=== PATIENT | female | born 1945 | race Caucasian/White ===

== ENCOUNTER 2017-02-01 17:35 | Emergency (ER) | payer OTHER, MEDICARE ==
[2017-02-01 17:43] VITALS: PULSE 80; TEMP 98.3; BMI 21.6
--- NOTE | 2017-02-01 18:07 | PDOC ---
History of Present Illness - History of Present Illness Initial Comments: 02/01/17 18:24 The patient is a 71 year old female, with a significant past medical history of Goiter, insomnia, osteoarthritis, who presents to the emergency department with right heel pain since this morning. Patient stated that her pain began this morning after her normal daily walk. She describes her right heel as swollen, hot, and tender to the touch. She states she is currently unable to ambulate without limping. Ambulating and palpation makes her rt heel pain worse. She says that nothing makes it better. Did not take any medication. FMHx diabetes, HTN, hypercholesterolemia. She denies recent fevers, chills, headache or dizziness. She denies recent nausea, vomit, diarrhea or constipation. She denies recent dysuria, frequency, urgency or hematuria. She denies recent chest pain or shortness of breath. Primary Care Physician: Alexis Kyle <Bernarda Carrillo - Last Filed: 02/01/17 18:24> <Ellen Contreras - Last Filed: 02/01/17 18:32> - General Chief Complaint: Redness To Affected Area Stated Complaint: RIGHT HEEL REDNESS Time Seen by Provider: 02/01/17 17:45 Past History <Bernarda Carrillo - Last Filed: 02/01/17 18:24> - Past Medical History Cancer: Yes Thyroid Disease: Yes (GOITER) - Immunization History Immunization Up to Date: (5 YRS) - Suicide/Smoking/Psychosocial Hx Smoking History: Never smoked Hx Alcohol Use: Yes Drug/Substance Use Hx: No Substance Use Type: Alcohol <Ellen Contreras - Last Filed: 02/01/17 18:32> - Past Medical History Allergies/Adverse Reactions: Allergies Allergy/AdvReac Type Severity Reaction Status Date / Time No Known Allergies Allergy Verified 02/01/17 17:37 Home Medications: Ambulatory Orders Levothyroxine [Synthroid -] 100 mcg PO DAILY 05/21/15 Trazodone HCl 200 mg PO DAILY 05/21/15 Zolpidem Tartrate [Ambien] 5 mg PO HS 05/21/15 Cephalexin Monohydrate [Keflex -] 500 mg PO Q6H #28 capsule 02/01/17 Sulfamethoxazole/Trimethoprim [Bactrim Ds -] 1 tab PO BID #14 tablet 02/01/17 Review of Systems - Review of Systems Comments:: 02/01/17 18:25 GENERAL/CONSTITUTIONAL: No fever or chills. No weakness. HEAD, EYES, EARS, NOSE AND THROAT: No change in vision. No ear pain or discharge. No sore throat. GASTROINTESTINAL: No nausea, vomiting, diarrhea or constipation. GENITOURINARY: No dysuria, frequency, or change in urination. CARDIOVASCULAR: No chest pain or shortness of breath. RESPIRATORY: No cough, wheezing, or hemoptysis. MUSCULOSKELETAL: No joint or muscle swelling or pain. No neck or back pain. SKIN: +right heel pain and swelling. +errythema of rt heel. +increased warmth of skin around heel. No rash NEUROLOGIC: No headache, vertigo, loss of consciousness, or change in strength/ sensation. ENDOCRINE: No increased thirst. No abnormal weight change. HEMATOLOGIC/LYMPHATIC: No anemia, easy bleeding, or history of blood clots. ALLERGIC/IMMUNOLOGIC: No hives or skin allergy. <Bernarda Carrillo - Last Filed: 02/01/17 18:24> *Physical Exam - Vital Signs Last Vital Signs Temp Pulse Resp BP Pulse Ox 98.3 F 80 14 181/111 100 02/01/17 17:36 02/01/17 17:36 02/01/17 17:36 02/01/17 17:36 02/01/17 17:36 <Bernarda Carrillo - Last Filed: 02/01/17 18:24> - Vital Signs Last Vital Signs Temp Pulse Resp BP Pulse Ox 98.3 F 80 14 181/111 100 02/01/17 17:36 02/01/17 17:36 02/01/17 17:36 02/01/17 17:36 02/01/17 17:36 - Physical Exam Comments: GENERAL: Awake, alert, and fully oriented, in no acute distress HEAD: No signs of trauma EYES: PERRLA, EOMI, sclera anicteric, conjunctiva clear ENT: Auricles normal inspection, hearing grossly normal, nares patent, oropharynx clear without exudates. Moist mucosa NECK: Normal ROM, supple, no lymphadenopathy, JVD, or masses EXTREMITIES: R foot with erythema and slight induration, warmth to the instep. + Bunions to the great toes B/L. Remainder of extremities with normal range of motion, no edema. No clubbing or cyanosis. No cords. NEUROLOGICAL: Cranial nerves II through XII grossly intact. Normal speech, normal gait SKIN: Warm, Dry, normal turgor, no rashes or lesions noted. <Ellen Contreras - Last Filed: 02/01/17 18:32> *DC/Admit/Observation/Transfer - Attestations Scribe Attestion: 02/01/17 18:28 Documentation prepared by Bernarda Carrillo, acting as medical office technologist for Ellen Contreras MD. <Bernarda Carrillo - Last Filed: 02/01/17 18:24> - Discharge Dispostion Admit: No <Ellen Contreras - Last Filed: 02/01/17 18:32> Diagnosis at time of Disposition: Cellulitis of foot, right - Discharge Dispostion Disposition: HOME Condition at time of disposition: Stable - Prescriptions Prescriptions: Sulfamethoxazole/Trimethoprim [Bactrim Ds -] 1 tab PO BID #14 tablet Cephalexin Monohydrate [Keflex -] 500 mg PO Q6H #28 capsule - Referrals Referrals: Alexis Kyle [Primary Care Provider] - - Patient Instructions Printed Discharge Instructions: DI for Cellulitis -- Adult
[2017-02-01 18:53] VITALS: BP 170/104
== END 2017-02-01 18:53 | disposition home or self-care (01) ==
LOC: FER 17:35
DX: L03.115 Cellulitis of right lower limb (principal); E04.9 Nontoxic goiter, unspecified
CPT/HCPCS: 73630-TC-RT; 99281-25

== ENCOUNTER 2018-12-21 14:40 | Emergency (ER) | payer OTHER, MEDICARE ==
[2018-12-21 14:57] VITALS: BP 188/110; PULSE 80; TEMP 98.3; BMI 21.6
--- NOTE | 2018-12-21 15:17 | PDOC ---
History of Present Illness - General Chief Complaint: Injury Stated Complaint: LEFT FOOT INJURY Time Seen by Provider: 12/21/18 14:46 History Source: Patient Exam Limitations: No Limitations - History of Present Illness Initial Comments: 12/21/18 15:12 CHIEF COMPLAINT: Left foot injury on Saturday HISTORY OF PRESENT ILLNESS: 73-year-old woman was getting out of the shower on Saturday, 4 days ago, when the door came off the hinges and the glass shattered. She got injured to the top of her left foot. There is a small cut on top of her foot which has been healing well. She has been wearing sandals due to the injury, but when she tried to put sneakers on the pain increased due to the pressure on the foot. She comes in now for an examination of the left foot injury. Concerns include injury to the foot as well as possible small cut with glass. REVIEW OF SYSTEMS: No fever or chills No swelling or redness to the foot Positive left foot pain with ambulation and with wearing shoes. Past History - Past Medical History Allergies/Adverse Reactions: Allergies Allergy/AdvReac Type Severity Reaction Status Date / Time No Known Allergies Allergy Verified 12/21/18 14:42 Home Medications: Ambulatory Orders Levothyroxine [Synthroid -] 100 mcg PO DAILY 05/21/15 Trazodone HCl 200 mg PO DAILY 05/21/15 Zolpidem Tartrate [Ambien] 5 mg PO HS 05/21/15 Cancer: Yes COPD: No Thyroid Disease: Yes (GOITER) - Immunization History Immunization Up to Date: (5 YRS) - Suicide/Smoking/Psychosocial Hx Smoking History: Never smoked Hx Alcohol Use: Yes (WEEK) Drug/Substance Use Hx: No Substance Use Type: Alcohol *Physical Exam - Vital Signs Last Vital Signs Temp Pulse Resp BP Pulse Ox 98.3 F 80 16 188/110 H 97 12/21/18 14:41 12/21/18 14:41 12/21/18 14:41 12/21/18 14:41 12/21/18 14:41 - Physical Exam Comments: 12/21/18 15:14 GENERAL: The patient is awake, alert, and fully oriented, in no acute distress. HEAD: Normal with no signs of trauma. EYES: Pupils equal, round and reactive to light, extraocular movements intact, sclera anicteric, conjunctiva clear. EXTREMITIES: The left calf and leg is normal. The left ankle has no bony tenderness or swelling. The left foot has a 3 mm laceration on the dorsal surface which is almost fully healed. There is no erythema, no swelling, no discharge, and no tenderness. There is mild diffuse tenderness across the dorsal midfoot with no specific point tenderness. No edema of the ankle or foot. No open wounds. No palpable subcutaneous glass. NEUROLOGICAL: Normal speech, normal gait. PSYCH: Normal mood, normal affect. SKIN: Warm, Dry, normal turgor, no rashes or lesions noted. ED Treatment Course - RADIOLOGY Radiology Studies Ordered: Category Date Time Status FOOT-LEFT [RAD] Stat Radiology 12/21/18 15:11 Ordered Medical Decision Making - Medical Decision Making 12/21/18 15:16 73-year-old female has an injury to her left foot secondary to injury from a shower door that came off the hinges and then the glass shattered. Injury was 4 days ago but she continues to have left foot pain. There is no visible or palpable foreign body. There is no erythema or swelling. There is some mild diffuse dorsal foot tenderness with no specific point tenderness. Initial impression: Likely soft tissue injury from contusion to the left foot. X-ray to be ordered to rule out bony injury or foreign body. 12/21/18 15:39 3 views of the left foot were reviewed by me on a preliminary basis. There is no acute fracture or dislocation. There is no glass foreign body seen in the soft tissues. There are arthritic changes at the first MTP joint consistent with patient's known history of bilateral bunions, however, this is unrelated to her acute injury. Radiology follow-up procedure activated at the time of discharge. Final impression: Soft tissue injury to the left foot, no foreign body or fracture. 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 Patient advised regarding analgesic medication and appropriate advancement of exercise slowly in a stepwise fashion. *DC/Admit/Observation/Transfer Diagnosis at time of Disposition: Contusion of left foot Qualifiers: Encounter type: initial encounter Qualified Code(s): S90.32XA - Contusion of left foot, initial encounter - Discharge Dispostion Disposition: HOME Condition at time of disposition: Stable Decision to Admit order: No - Referrals Referrals: Alexis Kyle [Primary Care Provider] - - Patient Instructions Printed Discharge Instructions: DI for Foot Sprain Additional Instructions: You were evaluated today for an injury to your left foot. The x-ray shows no glass in the skin, and no broken bones. You do have arthritis in the region of the big toe consistent with a bunion. You are advised to rest the foot, advance activities and exercise slowly and steadily as long as the pain continues to improve. Take Tylenol or Advil as needed for pain. Follow-up with your primary care physician if symptoms do not improve. Return to the emergency department for any severe or progressive symptoms. - Post Discharge Activity
== END 2018-12-21 15:48 | disposition home or self-care (01) ==
LOC: FER 14:40
DX: S91.312A Laceration without foreign body, left foot, initial encounter (principal); W25.XXXA Contact with sharp glass, initial encounter; Y93.89 Activity, other specified; S90.32XA Contusion of left foot, initial encounter; Y92.002 Bathroom of unspecified non-institutional (private) residence as the place of occurrence of the external cause
CPT/HCPCS: 73630-TC-LT; 99281-25

== ENCOUNTER 2024-12-27 15:56 | Emergency (ER) | payer OTHER, MEDICARE ==
[2024-12-27 16:11] VITALS: BP 202/113; PULSE 88; RESP 18; TEMP 98.6; BMI 21.4
[2024-12-27] MEDS ORDERED: CEPHALEXIN 250 MG/5 ML ORAL SUSPENSION PO ONE (17:12)
[2024-12-27] MEDS ORDERED: CEPHALEXIN MONOHYDRATE 500 MG CAPSULE (UD) ONE ×2 (17:15→17:19)
[2024-12-27] MEDS: CEPHALEXIN MONOHYDRATE 500 MG CAPSULE (UD) PO ONE (17:17)
== END 2024-12-27 17:25 | disposition home or self-care (01) ==
LOC: FER 15:56
DX: S52.501A Unspecified fracture of the lower end of right radius, initial encounter for closed fracture (principal); W19.XXXA Unspecified fall, initial encounter
CPT/HCPCS: 73090-TC-RT-FY; 99283-25